=== PATIENT | female | born 1960 | race American Indian/Alaskan Native ===

== ENCOUNTER 2017-06-10 07:56 | Outpatient (CLI) | payer OTHER | END 2017-06-10 07:57 | disposition home or self-care (01) | LOC: PF 07:56 | PROVIDERS: ATTEND Internal Medicine | DX: Z02.71 Encounter for disability determination (principal); J45.909 Unspecified asthma, uncomplicated; J40 Bronchitis, not specified as acute or chronic; F41.9 Anxiety disorder, unspecified; K21.9 Gastro-esophageal reflux disease without esophagitis; G43.909 Migraine, unspecified, not intractable, without status migrainosus; M51.26 Other intervertebral disc displacement, lumbar region; S39.92XA Unspecified injury of lower back, initial encounter; M75.100 Unspecified rotator cuff tear or rupture of unspecified shoulder, not specified as traumatic; X58.XXXA Exposure to other specified factors, initial encounter; Y93.89 Activity, other specified; Y92.89 Other specified places as the place of occurrence of the external cause; Y99.8 Other external cause status | CPT/HCPCS: 94010 ==

== ENCOUNTER 2018-11-04 14:13 | Inpatient (IN) | payer OTHER ==
--- NOTE | 2018-11-04 16:47 | Emergency Department Report ---
HPI - General Chief Complaint: Dizziness Time Seen by Provider: 11/04/18 16:08 - HPI HPI: Room 26 The patient is a 58-year-old female presenting with a chief complaint of weakness and slurred speech. The patient states her symptoms began one week ago with intermittent weakness of both arms and legs. Patient states at times she has tremors in both hands. The patient exhibits a minute slurred speech for the past week. Patient states she feels dizzy and off balance whenever she stands for the past week. The patient states whenever she talks it feels as though her tongue is not doing what she is telling it to do. Location: [See above] Duration: [See above] Quality: [See above] Severity: [See above] Timing: [See above] Context: [See above] Modifying factors: [See above] Associated signs and symptoms: [see above] ED Past Medical Hx - Past Medical History Previous Medical History?: Yes Hx Asthma: Yes - Surgical History Past Surgical History?: Yes Additional Surgical History: 1986 - Family History Family history: no significant - Social History Smoking Status: Never Smoker Substance Use Type: None (denies illicit drug use) ED Review of Systems ROS: Stated complaint: WEAKNESS Other details as noted in HPI Constitutional: no symptoms reported Eyes: denies: eye pain ENT: denies: throat pain Respiratory: no symptoms reported Cardiovascular: denies: chest pain Endocrine: no symptoms reported Gastrointestinal: denies: abdominal pain Genitourinary: denies: dysuria Musculoskeletal: denies: back pain Neurological: weakness, other (dysarthria) Physical Exam - Physical Exam Vital Signs: Vital Signs 11/04/18 14:25 Temperature 98.5 F Pulse Rate 92 H Respiratory 18 Rate Blood Pressure 127/74 O2 Sat by Pulse 98 Oximetry Physical Exam: GENERAL: The patient is well-developed well-nourished female lying on stretcher not appearing to be in acute distress. [] HEENT: Normocephalic. Atraumatic. Extraocular motions are intact. Patient has moist mucous membranes. NECK: Supple. Trachea midline CHEST/LUNGS: Clear to auscultation. There is no respiratory distress noted. HEART/CARDIOVASCULAR: Regular. There is no tachycardia. There is no gallop rub or murmur. ABDOMEN: Abdomen is soft, nontender. Patient has normal bowel sounds. There is no abdominal distention. SKIN: There is no rash. There is no edema. There is no diaphoresis. NEURO: The patient is awake, alert, and oriented. The patient is cooperative. The patient has no focal neurologic deficits. The patient has normal speech. Cranial nerves II through XII grossly intact, no drift. Patient able to hold either leg at 30 angle for 5 seconds. MUSCULOSKELETAL: There is no evidence of acute injury. NIHSS= 0 ED Course Vital Signs 11/04/18 14:25 Temperature 98.5 F Pulse Rate 92 H Respiratory 18 Rate Blood Pressure 127/74 O2 Sat by Pulse 98 Oximetry ED Medical Decision Making - Lab Data Result diagrams: 11/04/18 17:33 11/04/18 17:33 Laboratory Tests 11/04/18 11/04/18 11/04/18 17:33 17:33 17:33 WBC 12.0 H RBC 5.92 H Hgb 12.7 Hct 41.1 MCV 69 L MCH 22 L MCHC 31 RDW 15.4 H Plt Count 278 Lymph % (Auto) 28.8 [place] % (Auto) 6.2 Eos % (Auto) 0.7 Baso % (Auto) 0.4 Lymph # 3.5 [place] # 0.7 Eos # 0.1 Baso # 0.0 Seg Neutrophils % 63.9 Seg Neutrophils # 7.7 PT 12.8 INR 0.99 APTT 27.5 Sodium 143 Potassium 3.8 Chloride 103.1 Carbon Dioxide 25 Anion Gap 19 BUN 16 Creatinine 0.8 Estimated GFR > 60 BUN/Creatinine Ratio 20 Glucose 62 L Calcium 9.1 Phosphorus 3.60 Magnesium 1.90 Total Bilirubin 0.30 AST 17 ALT 36 Alkaline Phosphatase 85 Total Creatine Kinase 73 CK-MB (CK-2) < 1.0 CK-MB (CK-2) Rel Index 1.3 Troponin T < 0.010 Total Protein 6.9 Albumin 3.9 Albumin/Globulin Ratio 1.3 - EKG Data -: EKG Interpreted by Mt EKG shows normal: sinus rhythm Rate: normal - EKG Data When compared to previous EKG there are: previous EKG unavailable Interpretation: nonspecific ST-T wave parth (T-wave inversion in lead 3) - Radiology Data Radiology results: report reviewed (CT head), image reviewed (CT head) [facility] [address] [place] [address] Cat Scan Report Signed Patient: ALEKSANDR RIVAS MR#: [id number] : 1960 Acct:[id number] Age/Sex: 58 / F ADM Date: 11/04/18 Loc: ED Attending Dr: Ordering Physician: DURAN MATA MD Date of Service: 11/04/18 Procedure(s): CT head/brain wo con Accession Number(s): [id number] cc: DURAN MATA MD CT head/brain wo con INDICATION: intermittent dizziness, slurred speech and weaknes. TECHNIQUE: All CT scans at this location are performed using CT dose reduction for ALARA by means of automated exposure control. COMPARISON: None available. FINDINGS: Visualized paranasal and mastoid sinuses are clear. Motion artifact obscures considerable detail on the more inferior images. Posterior fo ssa and temporal lobes are not adequately seen. Ventricles are symmetrical and normal in size. No appreciable mass, hemorrhage or other acute abnormality. IMPRESSION: 1. Suboptimal imaging of the posterior fossa, brainstem and temporal lobes. No significant abnormalities identified. Signer Name: Max Cordoba MD Signed: 11/04/2018 7:09 PM Workstation Name: [id number] Transcribed By: TM Dictated By: Max Cordoba MD Electronically Authenticated By: Max Cordoba MD Signed Date/Time: 11/04/181908 DD/ 05 TD/TT: - Differential Diagnosis TIAs, CVA, MS, electrolyte abnormality Critical care attestation.: If time is entered above; I have spent that time in minutes in the direct care of this critically ill patient, excluding procedure time. ED Disposition Clinical Impression: Transient neurological symptoms Disposition: OP ADMIT IP TO THIS HOSP Is pt being admited?: Yes Does the pt Need Aspirin: Yes Condition: Fair Referrals: PRIMARY CARE, [Primary Care Provider] - 3-5 Days Time of Disposition: 19:21 (Hospitalist paged (Dr Ramos))
[2018-11-04 17:48] LABS: Basophils % (Auto) 0.4 % (0.0-1.8); Eosinophils # (Auto) 0.1 K/mm3 (0.0-0.4); Eosinophils % (Auto) 0.7 % (0.0-4.3); Hematocrit 41.1 % (30.3-42.9); Hemoglobin 12.7 gm/dl (10.1-14.3); Lymphocytes # (Auto) 3.5 K/mm3 (1.2-5.4); Lymphocytes % (Auto) 28.8 % (13.4-35.0); Mean Corpuscular HGB Conc 31 % (30-34); Monocytes # (Auto) 0.7 K/mm3 (0.0-0.8); Monocytes % (Auto) 6.2 % (0.0-7.3); Platelet Count 278 K/mm3 (140-440); Red Blood Count 5.92 M/mm3 (3.65-5.03); Red Cell Distribution Width 15.4 % (13.2-15.2)
[2018-11-04 17:58] LABS: Mean Corpuscular Volume 69 fl (79-97)
[2018-11-04 17:59] LABS: INR 0.99 (0.87-1.13); Partial Thromboplastin Time 27.5 Sec. (24.2-36.6)
[2018-11-04 18:11] LABS: Alanine Aminotransferase 36 units/L (7-56); Albumin 3.9 g/dL (3.9-5); BUN/Creatinine Ratio 20; Blood Urea Nitrogen 16 mg/dL (7-17); Calcium 9.1 mg/dL (8.4-10.2); Hemolysis Index 3
[2018-11-04 18:41] LABS: Creatine Kinase MB < 1.0 ng/mL (0.0-4.0)
--- NOTE | 2018-11-04 19:13 | Cat Scan Report ---
CT head/brain wo con INDICATION: intermittent dizziness, slurred speech and weaknes. TECHNIQUE: All CT scans at this location are performed using CT dose reduction for ALARA by means of automated e xposure control. COMPARISON: None available. FINDINGS: Visualized paranasal and mastoid sinuses are clear. Motion artifact obscures considerable detail on the more inferior images. Posterior fossa and tempora l lobes are not adequately seen. Ventricles are symmetrical and normal in size. No appreciable mass, hemorrhage or other acute abnorma lity. IMPRESSION: 1. Suboptimal imaging of the posterior fossa, brainstem and temporal lobes. No significant abnormalit ies identified. Signer Name: Max Cordoba MD Signed: 11/04/2018 7:09 PM Workstation Name: [id number]
[2018-11-04] MEDS ORDERED: ASPIRIN PO ONE (19:21)
--- NOTE | 2018-11-04 21:47 | History and Physical Report ---
History of Present Illness Date of examination: 11/04/18 History of present illness: 58-year-old man with a history of asthma comes emergency room complaining of dizziness all week and her balance being off. She also stated that she had slurred speech intermittently during the week and jerking of her hands eview Of Systems: Constitutional: no weight loss, fever, chills Ears, eyes, nose, mouth and throat: no nasal congestion, no nasal discharge, no sinus pressure, blurry vision, diplopia Neck: No neck pain or rigidity. Cardiovascular: No palpitations, chest pain Respiratory: No shortness of breath, cough Gastrointestinal: No hematochezia, abdominal pain Genitourinary : no dysuria, frequency , hematuria Musculoskeletal: no muscle ache , joint pain Integumentary: no rash, no pruritis Neurological: no parathesias, focal weakness Endocrine: no cold or heat intolerance, no polyuria or polydipsia Hematologic/Lymphatic: no easy bruising, no easy bleeding, no gland swelling Allergic/Immunologic: no urticaria, no angioedema. PAST MEDICAL HISTORY: asthma PAST SURGICAL HISTORY: Section, rotator cuff FAMILY HISTORY:hypertension, diabetes SOCIAL HISTORY: Denies tobacco, drugs, alcohol Medications and Allergies Allergies Allergy/AdvReac Type Severity Reaction Status Date / Time egg Allergy Nausea Unverified 04/08/17 07:12 prednisone Allergy Itching Verified 04/03/13 00:24 Home Medications Medication Instructions Recorded Confirmed Last Taken Type Cetirizine HCl [Zyrtec 10mg tab] 10 mg PO QDAY 11/04/18 11/04/18 Unknown History Dextroamphetamine/Amphetamine 5 mg PO QDAY 11/04/18 11/04/18 Unknown History [Adderall 10 mg Tablet] FLUoxetine HCL [PROzac] 40 mg PO QDAY 11/04/18 11/04/18 Unknown History Gabapentin [Neurontin] 300 mg PO BID 11/04/18 11/04/18 Unknown History Meclizine [Antivert] 25 mg PO TID PRN 11/04/18 11/04/18 Unknown History Pantoprazole [Protonix] 40 mg PO BID 11/04/18 11/04/18 Unknown History buPROPion [Wellbutrin] 75 mg PO QAM 11/04/18 11/04/18 Unknown History diphenhydrAMINE [Benadryl CAP] 25 mg PO QHS PRN 11/04/18 11/04/18 Unknown History traZODone [Desyrel] 50 mg PO QHS 11/04/18 11/04/18 Unknown History Exam - Physical Exam Narrative exam: General Apperance: The patient sitting in bed no acute distress HEENT: Normocephalic, atraumatic. Pupils equally round and reactive to light, extraocular movement intact, and no sclericterus or JVD or thyromegaly or nodule. Neck supple, no carotid bruit, mucous membranes moist, no exudate or erythema Heart: S1-S2, regular is rhythm Lungs: Clear to auscultation bilaterally, breathing comfortable Abdomen: Positive bowel sounds, soft, nontender, nondistended, no organomegaly Extremities: No edema cyanosis clubbing Skin: no rash, nodule, warm and dry Neuro:CN 2 -12 intact, motor/sensory intact, speech is fluent - Constitutional Vitals: Temp Pulse Resp BP Pulse Ox 98.5 F 84 18 104/49 99 11/04/18 14:25 11/04/18 21:25 11/04/18 21:25 11/04/18 21:25 11/04/18 21:25 Results - Labs CBC & Chem 7: 11/04/18 17:33 11/04/18 17:33 Labs: Abnormal lab results 11/04/18 11/04/18 Range/Units 17:33 17:33 WBC 12.0 H (4.5-11.0) K/mm3 RBC 5.92 H (3.65-5.03) M/mm3 MCV 69 L (79-97) fl MCH 22 L (28-32) pg RDW 15.4 H (13.2-15.2) % Glucose 62 L (65-100) mg/dL - Imaging and Cardiology CT Scan - head: report reviewed Assessment and Plan Assessment Her blood TIA Asthma Plan Plan Admit to medicine Obtain MRI of the head, and neck, echo Start aspirin, statin, fluid IV hydralazine as needed for blood pressure control [facility] [employer] Super[employer] neurology, physical and occupational therapy DVT prophylaxis
[2018-11-04] MEDS ORDERED: TYLENOL PO ONE (22:51)
[2018-11-04] MEDS ORDERED: ASPIRIN ONE (22:56)
[2018-11-04] MEDS ORDERED: TYLENOL ONE (22:56)
[2018-11-04] MEDS ORDERED: SODIUM CHLORIDE FLUSH SYRINGE 10 ML IV PRN (23:17)
[2018-11-04] MEDS ORDERED: DULCOLAX PR PRN (23:17)
[2018-11-04] MEDS ORDERED: ZOFRAN IV PRN (23:17)
[2018-11-04] MEDS ORDERED: MILK OF MAGNESIA PO PRN (23:17)
[2018-11-05] MEDS: NACL 0.9% 1000 ML 1,000 ML IV SCH ×2 (01:29→16:12)
[2018-11-05 07:30] LABS: Chol/HDL Ratio 2.75 %
[2018-11-05] MEDS ORDERED: LOVENOX SUB-Q SCH (10:00)
--- NOTE | 2018-11-05 11:42 | Magnetic Resonance Report ---
MRI BRAIN WITHOUT CONTRAST, MRA HEAD WITHOUT CONTRAST INDICATION / CLINICAL INFORMATION: stroke. Symptoms include slurred speech and arm and leg shaking. TECHNIQUE: Multiplanar, multi sequential MRI images of the brain. Routine MRA of the head is performed. 3-D/MIP reformats postprocessed. COMPARISON: Head CT on 11/04/2018. FINDINGS: MR BRAIN: BRAIN / INTRACRANIAL CONTENTS: No acute ischemia, acute hemorrhage, mass effect, midline shift, or hy drocephalus. No chronic infarct or significant atrophy. No significant demyelinating changes. CRANIOCERVICAL JUNCTION: No significant abnormality. VASCULAR FLOW-VOIDS: No significant abnormality. ORBITS: No significant abnormality of visualized orbits. SINUSES / MASTOIDS: No significant abnormality of visualized sinuses and mastoid air cells. ADDITIONAL FINDINGS: None. MRA HEAD: Intracranial vertebral arteries: No significant stenosis. Left vertebral artery is dominant. Basilar artery: No significant abnormality. Posterior cerebral arteries: There is origin of the right posterior cerebral artery. Intracranial internal carotid arteries: No significant abnormality. Anterior cerebral arteries: No significant abnormality. Middle cerebral arteries: No significant abnormality. Additional findings: None. IMPRESSION: 1. No acute infarct or other acute intracranial abnormality. The brain appears essentially normal for age. 2. No significant stenosis or large vessel occlusion of the intracranial arteries. Signer Name: Silverio Stephen MD Signed: 11/05/2018 11:38 AM Workstation Name: [id number]
[2018-11-05] MEDS ORDERED: PNEUMOVAX 23 IM ONE (12:00)
[2018-11-05] MEDS: LOVENOX SUB-Q SCH (12:56)
[2018-11-05] MEDS: ASPIRIN PO SCH (12:56)
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
[2018-11-05] MEDS: TYLENOL PO PRN ×2 (16:16→21:59)
[2018-11-05] MEDS ORDERED: ANTIVERT PO PRN (17:24)
--- NOTE | 2018-11-05 17:24 | Progress Note ---
Assessment and Plan Assessment and plan: Orthostasis. Presyncope/Dizziness secondarily. Cont. IVF hydration Dehydration/volume depletion. As above Tremor. Etiology sec to Benign essential tremor vs increase in wellbutrin. Disposition. D/C in am History Interval history: no new issues overnight Hospitalist Physical - Constitutional Vitals: Temp Pulse Resp BP Pulse Ox 97.2 F L 90 18 146/94 99 11/05/18 04:31 11/05/18 11:46 11/05/18 04:31 11/05/18 11:46 11/05/18 04:31 General appearance: Present: no acute distress, well-nourished - EENT Eyes: Present: PERRL, EOM intact ENT: hearing intact, clear oral mucosa, dentition normal - Neck Neck: Present: supple, normal ROM - Respiratory Respiratory effort: normal Respiratory: bilateral: CTA - Cardiovascular Rhythm: regular Heart Sounds: Present: S1 & S2. Absent: gallop, rub - Extremities Extremities: no ischemia, No edema, Full ROM - Abdominal General gastrointestinal: soft, non-tender, non-distended, normal bowel sounds - Integumentary Integumentary: Present: clear, warm, dry - Neurologic Neurologic: CNII-XII intact, moves all extremities Results - Labs CBC & Chem 7: 11/04/18 17:33 11/04/18 17:33 Labs: Laboratory Last Values WBC 12.0 K/mm3 (4.5-11.0) H 11/04/18 17:33 RBC 5.92 M/mm3 (3.65-5.03) H 11/04/18 17:33 Hgb 12.7 gm/dl (10.1-14.3) 11/04/18 17:33 Hct 41.1 % (30.3-42.9) 11/04/18 17:33 MCV 69 fl (79-97) L 11/04/18 17:33 MCH 22 pg (28-32) L 11/04/18 17:33 MCHC 31 % (30-34) 11/04/18 17:33 RDW 15.4 % (13.2-15.2) H 11/04/18 17:33 Plt Count 278 K/mm3 (140-440) 11/04/18 17:33 Lymph % (Auto) 28.8 % (13.4-35.0) 11/04/18 17:33 Gem % (Auto) 6.2 % (0.0-7.3) 11/04/18 17:33 Eos % (Auto) 0.7 % (0.0-4.3) 11/04/18 17:33 Baso % (Auto) 0.4 % (0.0-1.8) 11/04/18 17:33 Lymph # 3.5 K/mm3 (1.2-5.4) 11/04/18 17:33 Gem # 0.7 K/mm3 (0.0-0.8) 11/04/18 17:33 Eos # 0.1 K/mm3 (0.0-0.4) 11/04/18 17:33 Baso # 0.0 K/mm3 (0.0-0.1) 11/04/18 17:33 Seg Neutrophils % 63.9 % (40.0-70.0) 11/04/18 17:33 Seg Neutrophils # 7.7 K/mm3 (1.8-7.7) 11/04/18 17:33 PT 12.8 Sec. (12.2-14.9) 11/04/18 17:33 INR 0.99 (0.87-1.13) 11/04/18 17:33 APTT 27.5 Sec. (24.2-36.6) 11/04/18 17:33 Sodium 143 mmol/L (137-145) 11/04/18 17:33 Potassium 3.8 mmol/L (3.6-5.0) 11/04/18 17:33 Chloride 103.1 mmol/L (98-107) 11/04/18 17:33 Carbon Dioxide 25 mmol/L (22-30) 11/04/18 17:33 19 mmol/L 11/04/18 17:33 BUN 16 mg/dL (7-17) 11/04/18 17:33 0.8 mg/dL (0.7-1.2) 11/04/18 17:33 Estimated GFR > 60 ml/min 11/04/18 17:33 20 % 11/04/18 17:33 Glucose 62 mg/dL (65-100) L 11/04/18 17:33 Calcium 9.1 mg/dL (8.4-10.2) 11/04/18 17:33 Phosphorus 3.60 mg/dL (2.5-4.5) 11/04/18 17:33 Magnesium 1.90 mg/dL (1.7-2.3) 11/04/18 17:33 0.30 mg/dL (0.1-1.2) 11/04/18 17:33 AST 17 units/L (5-40) 11/04/18 17:33 ALT 36 units/L (7-56) 11/04/18 17:33 85 units/L (35-129) 11/04/18 17:33 73 units/L (30-135) 11/04/18 17:33 CK-MB (CK-2) < 1.0 ng/mL (0.0-4.0) 11/04/18 17:33 CK-MB (CK-2) Rel Index 1.3 (0-4) 11/04/18 17:33 < 0.010 ng/mL (0.00-0.029) 11/04/18 17:33 6.9 g/dL (6.3-8.2) 11/04/18 17:33 3.9 g/dL (3.9-5) 11/04/18 17:33 1.3 % 11/04/18 17:33 Triglycerides 70 mg/dL (2-149) 11/05/18 05:53 Cholesterol 146 mg/dL (50-199) 11/05/18 05:53 93 mg/dL (50-130) 11/05/18 05:53 53 mg/dL (40-59) 11/05/18 05:53 2.75 % 11/05/18 05:53 Active Medications - Current Medications Current Medications: Generic Name Dose Route Start Last Admin Trade Name Freq PRN Reason Stop Dose Admin Acetaminophen 650 mg 11/04/18 23:17 11/05/18 16:16 Tylenol PO 650 mg Q4H PRN Administration Pain, Mild (1-3) Aspirin 325 mg 11/05/18 10:00 11/05/18 12:56 Aspirin PO 325 mg QDAY [facility] Administration Bisacodyl 10 mg 11/04/18 23:17 Dulcolax [place] QDAY PRN Constipation Enoxaparin Sodium 40 mg 11/05/18 10:00 11/05/18 12:56 Lovenox SUB-Q 40 mg QDAY@1000 [facility] Administration Sodium Chloride 1,000 mls @ 100 mls/hr 11/04/18 23:45 11/05/18 16:12 Nacl 0.9% 1000 Ml IV 100 mls/hr DIRECT [facility] Administration Magnesium Hydroxide 30 ml 11/04/18 23:17 Milk Of Magnesia PO Q4H PRN Constipation Ondansetron HCl 4 mg 11/04/18 23:17 Zofran IV Q8H PRN Nausea And Vomiting Pravastatin Sodium 20 mg 11/05/18 22:00 Pravachol PO QHS [facility] Sodium Chloride 10 ml 11/04/18 23:17 Sodium Chloride Flush Syringe 10 Ml IV PRN PRN LINE FLUSH
[2018-11-05] MEDS ORDERED: BENADRYL PO PRN (17:39)
[2018-11-05] MEDS: NEURONTIN PO SCH (21:58)
[2018-11-05] MEDS: PROTONIX PO SCH (21:58)
[2018-11-05] MEDS ORDERED: PRAVACHOL PO SCH (22:00)
[2018-11-05] MEDS ORDERED: DESYREL PO SCH (22:00)
[2018-11-06 04:54] VITALS: BP 112/45
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
[2018-11-06] MEDS: PROTONIX PO SCH (09:50)
[2018-11-06] MEDS: ASPIRIN PO SCH (09:50)
[2018-11-06] MEDS: NEURONTIN PO SCH (09:50)
[2018-11-06] MEDS: LOVENOX SUB-Q SCH (09:51)
[2018-11-06] MEDS ORDERED: CLARITIN PO SCH (10:00)
[2018-11-06] MEDS ORDERED: NON-FORMULARY (Fluoxetine Hcl [Prozac] 40 MG) PO SCH (10:00)
[2018-11-06] MEDS ORDERED: WELLBUTRIN PO SCH (10:00)
[2018-11-06] MEDS ORDERED: PROzac PO SCH (10:00)
[2018-11-06] MEDS ORDERED: NON-FORMULARY (Cetirizine Hcl [Zyrtec 10mg Tab] 10 MG) PO SCH (10:00)
== END 2018-11-06 16:35 | disposition home or self-care (01) | DRG 93 ==
LOC: ED 14:13 → 4A 21:46
PROVIDERS: ADMIT Internal Medicine; ATTEND Hospitalist
PROC: 3E0234Z Introduction of Serum, Toxoid and Vaccine into Muscle, Percutaneous Approach (ICD-10-PCS; principal; 2018-11-05)
DX: G25.0 Essential tremor (principal); R29.818 Other symptoms and signs involving the nervous system; F32.9 Major depressive disorder, single episode, unspecified; R47.1 Dysarthria and anarthria; J45.909 Unspecified asthma, uncomplicated; E86.0 Dehydration; E86.9 Volume depletion, unspecified; E16.2 Hypoglycemia, unspecified; R47.81 Slurred speech; M54.17 Radiculopathy, lumbosacral region; Z88.1 Allergy status to other antibiotic agents; Z91.012 Allergy to eggs; Z79.899 Other long term (current) drug therapy; Z82.49 Family history of ischemic heart disease and other diseases of the circulatory system; Z83.3 Family history of diabetes mellitus; Z23 Encounter for immunization
CPT/HCPCS: 36415; 70450; 70544; 70551; 80053; 80061; 82550; 82553; 83735; 84100; 84484; 85025; 85610; 85730; 90732; 93005; 93010; 93306; G0378; A9270-GY; J1650; J7030

== ENCOUNTER 2019-02-21 13:06 | Emergency (ER) | payer OTHER ==
[2019-02-21 13:12] VITALS: BP 120/63
--- NOTE | 2019-02-21 14:07 | XRay Report ---
CHEST 2 VIEWS INDICATION: MAIN: persistant cough; C/O Asthma bronchitis for a month. Saw PCP and was prescribed meds. No relief with meds. COMPARISON: None. FINDINGS: Support devices: None. Heart: Within normal limits. Lungs/Pleura: No acute air space or interstitial disease. No significant pleural effusion. IMPRESSION: No acute findings. Signer Name: Jamie Medel MD Signed: 02/21/2019 2:03 PM Workstation Name: [id number]
[2019-02-21] MEDS ORDERED: BENZONATATE 100 MG CAP PO ONE (15:06)
--- NOTE | 2019-02-21 16:26 | Emergency Department Report ---
Upper Respiratory HPI - HPI Chief Complaint: Adult Asthma Stated Complaint: ASTHMA/BRONCHITIS Time Seen by Provider: 02/21/19 14:12 URI Symptoms: Rhinorrhea: No, Sore Throat: No, Ear Pain: No, Cough: Yes, Shortness of Breath: No, Sick Contacts: No, Unable to Take Fluids: No, Urine Output Abnormal: No, Listless Behavior: No Other History: This is a 58-year-old female nontoxic, well nourished in appearance, no acute signs of distress presents to the ED with c/o of dry nonproducitve cough x1 month. Patient denies any sick contact. She stated she did see her primary care doctor and was given albuterol by mouth medication with no significant changes. Patient denies any recent travels, long car, recent hospital stays. Patient denies any calf pain or calf tenderness. Patient denies any chest pain, short of breath, fever, chills, nausea, vomiting, hemoptysis, numbness, tingling, headache or stiff neck. Patient stated allergies to prednisone with no significant past medical history besides asthma. - Home Meds and Allergies Home Medications: Home Medications Medication Instructions Recorded Confirmed Last Taken Dextroamphetamine/Amphetamine 5 mg PO QDAY 11/04/18 11/04/18 Unknown [Adderall 10 mg Tablet] buPROPion [Wellbutrin] 75 mg PO QAM 11/04/18 11/04/18 Unknown Previous Rx's Medication Instructions Recorded Last Taken Type Cetirizine HCl [Zyrtec 10mg tab] 10 mg PO QDAY #30 tablet 11/06/18 Unknown Rx FLUoxetine HCL [PROzac] 40 mg PO QDAY #30 capsule 11/06/18 Unknown Rx FLUoxetine [PROzac] 40 mg PO QDAY capsule 11/06/18 Unknown Rx Gabapentin 300 mg PO BID #60 capsule 11/06/18 Unknown Rx Loratadine (Nf) [Claritin (Nf)] 10 mg PO DAILY tablet 11/06/18 Unknown Rx Meclizine [Antivert] 25 mg PO TID PRN #90 tablet 11/06/18 Unknown Rx Pantoprazole [Protonix TAB] 40 mg PO BID #60 tablet 11/06/18 Unknown Rx diphenhydrAMINE [Benadryl CAP] 25 mg PO QHS PRN #30 capsule 11/06/18 Unknown Rx traZODone [Desyrel] 50 mg PO QHS #30 tablet 11/06/18 Unknown Rx ALBUTEROL NEB's [Proventil 0.083% 2.5 mg IH TID PRN #1 box 02/21/19 Unknown Rx NEBS] Benzonatate [Tessalon Perles] 100 mg PO Q8HR PRN #20 capsule 02/21/19 Unknown Rx Allergies/Adverse Reactions: Allergies Allergy/AdvReac Type Severity Reaction Status Date / Time egg Allergy Nausea Unverified 04/08/17 07:12 prednisone Allergy Itching Verified 04/03/13 00:24 ED Review of Systems ROS: Stated complaint: ASTHMA/BRONCHITIS Other details as noted in HPI Constitutional: denies: chills, fever Eyes: denies: eye pain, eye discharge, vision change ENT: denies: ear pain, throat pain Respiratory: cough. denies: shortness of breath, wheezing Cardiovascular: denies: chest pain, palpitations Endocrine: no symptoms reported Gastrointestinal: denies: abdominal pain, nausea, diarrhea Genitourinary: denies: urgency, dysuria, discharge Musculoskeletal: denies: back pain, joint swelling, arthralgia Skin: denies: rash, lesions Neurological: denies: headache, weakness, paresthesias Psychiatric: denies: anxiety, depression Hematological/Lymphatic: denies: easy bleeding, easy bruising ED Past Medical Hx - Past Medical History Previous Medical History?: Yes Hx Congestive Heart Failure: No Hx Diabetes: No Hx Asthma: Yes Hx COPD: No Additional medical history: Bronchitis - Surgical History Past Surgical History?: Yes Additional Surgical History: 1986, Tubaligation - Social History Smoking Status: Never Smoker Substance Use Type: Alcohol, Prescribed - Medications Home Medications: Home Medications Medication Instructions Recorded Confirmed Last Taken Type Dextroamphetamine/Amphetamine 5 mg PO QDAY 11/04/18 11/04/18 Unknown History [Adderall 10 mg Tablet] buPROPion [Wellbutrin] 75 mg PO QAM 11/04/18 11/04/18 Unknown History Cetirizine HCl [Zyrtec 10mg tab] 10 mg PO QDAY #30 tablet 11/06/18 Unknown Rx FLUoxetine HCL [PROzac] 40 mg PO QDAY #30 capsule 11/06/18 Unknown Rx FLUoxetine [PROzac] 40 mg PO QDAY capsule 11/06/18 Unknown Rx Gabapentin 300 mg PO BID #60 capsule 11/06/18 Unknown Rx Loratadine (Nf) [Claritin (Nf)] 10 mg PO DAILY tablet 11/06/18 Unknown Rx Meclizine [Antivert] 25 mg PO TID PRN #90 tablet 11/06/18 Unknown Rx Pantoprazole [Protonix TAB] 40 mg PO BID #60 tablet 11/06/18 Unknown Rx diphenhydrAMINE [Benadryl CAP] 25 mg PO QHS PRN #30 capsule 11/06/18 Unknown Rx traZODone [Desyrel] 50 mg PO QHS #30 tablet 11/06/18 Unknown Rx ALBUTEROL NEB's [Proventil 0.083% 2.5 mg IH TID PRN #1 box 02/21/19 Unknown Rx NEBS] Benzonatate [Tessalon Perles] 100 mg PO Q8HR PRN #20 capsule 02/21/19 Unknown Rx ED Bronchiolitis Physical Exam - Exam General: Vital signs noted. No distress. Alert and acting appropriately. Neurologic: Alert and oriented, no deficits. Musculoskeletal: Unremarkable. ED Bronchiolitis Tests - Testing Testing: CXR: Normal/Negative ED Physical Exam - General Limitations: No Limitations General appearance: alert, in no apparent distress - Head Head exam: Present: atraumatic, normocephalic - Neck Neck exam: Present: normal inspection, full ROM. Absent: tenderness, meningismus, lymphadenopathy - Respiratory Respiratory exam: Present: normal lung sounds bilaterally. Absent: respiratory distress, wheezes, rales, rhonchi, stridor, chest wall tenderness, accessory muscle use, decreased breath sounds, prolonged expiratory - Cardiovascular Cardiovascular Exam: Present: regular rate, normal rhythm, normal heart sounds. Absent: irregular rhythm, systolic murmur, diastolic murmur, rubs, gallop - Extremities Exam Extremities exam: Present: normal inspection, full ROM - Back Exam Back exam: Present: normal inspection, full ROM - Neurological Exam Neurological exam: Present: alert, oriented X3, normal gait - Psychiatric Psychiatric exam: Present: normal affect, normal mood - Skin Skin exam: Present: warm, dry, intact, normal color. Absent: rash ED Course Vital Signs 02/21/19 13:10 Temperature 98.7 F Pulse Rate 99 H Respiratory 20 Rate Blood Pressure 120/63 O2 Sat by Pulse 98 Oximetry - Reevaluation(s) Reevaluation #1: 02/21/19 16:28 Patient is speaking in full sentences with no signs of distress noted. ED Medical Decision Making - Medical Decision Making This is a 58-year-old female that presents with bronchitis. Patient is stable and was examined by me. Chest x-ray has been obtained and dictated by radiologist with normal exam. Patient is notified of x-ray results with no questions noted. Patient was instructed to increase hydration, rest and take Motrin for fever episodes. Patient received Tesslone perrls in the ED. Vitals stable. Patient is nonfebrile and normal heart rate. Patient was instructed Follow-up with a primary care doctor in 3-5 days or if symptoms worsen and continue return to emergency room as soon as possible. At time time of discharge, the patient does not seem toxic or ill in appearance. No acute signs of distress noted. Patient agrees to discharge treatment plan of care. No further questions noted by the patient. At discharge patient requested for a nebulizer albuterol refill. Critical care attestation.: If time is entered above; I have spent that time in minutes in the direct care of this critically ill patient, excluding procedure time. ED Disposition Clinical Impression: Bronchitis Disposition: DC-01 TO HOME OR SELFCARE Is pt being admited?: No Does the pt Need Aspirin: No Condition: Stable Instructions: Chronic Bronchitis (ED) Additional Instructions: Follow-up with a primary care doctor in 3-5 days or if symptoms worsen and continue return to emergency room as soon as possible. Prescriptions: ALBUTEROL NEB's [Proventil 0.083% NEBS] 2.5 mg IH TID PRN #1 box PRN Reason: Wheezing Benzonatate [Tessalon Perles] 100 mg PO Q8HR PRN #20 capsule PRN Reason: Cough Referrals: JUAN BLAKE MD [Primary Care Provider] - 3-5 Days PRIMARY CAREMD [Referring] - 3-5 Days LEXII RÍOS MD [Staff Physician] - 3-5 Days [facility] [Outside] - 3-5 Days Forms: Work/School Release Form(ED)
== END 2019-02-21 16:59 | disposition home or self-care (01) ==
LOC: ED 13:06
DX: J40 Bronchitis, not specified as acute or chronic (principal); Z98.51 Tubal ligation status; Z79.899 Other long term (current) drug therapy; Z91.012 Allergy to eggs; Z88.6 Allergy status to analgesic agent
CPT/HCPCS: 71046

== ENCOUNTER 2020-11-29 08:55 | Day surgery (SDC) | payer OTHER ==
[2020-11-28 11:14] LABS: Blood Urea Nitrogen 18 mg/dL (7-17); Hemolysis Index 2
[2020-11-28 11:30] LABS: Hemoglobin 12.3 gm/dl (10.1-14.3); Mean Corpuscular HGB Conc 32 % (30-34); Mean Corpuscular Volume 72 fl (79-97); Platelet Count 239 K/mm3 (140-440); Red Blood Count 5.42 M/mm3 (3.65-5.03); Red Cell Distribution Width 16.5 % (13.2-15.2)
[2020-11-28 11:52] LABS: BUN/Creatinine Ratio 26
--- NOTE | 2020-11-28 14:31 | Anesthesia Consultation ---
Anesthesia Consult and Med Hx Date of service: 11/28/20 - Airway Anesthetic Teeth Evaluation: Good, Caps ROM Head & Neck: Adequate Mental/Hyoid Distance: Adequate Mallampati Class: Class III Intubation Access Assessment: Possibly Difficult - Pulmonary Exam CTA: Yes (no wheezing, good air entry, normal WOB, SpO2 97% RA) - Cardiac Exam Cardiac Exam: RRR - Pre-Operative Health Status ASA Pre-Surgery Classification: ASA3 Proposed Anesthetic Plan: MAC - Pre-Anesthesia Comment Pre-Anesthesia Comments: GA vs MAC pending discussion with surgeon - Pulmonary Hx Smoking: No Hx Asthma: Yes (daily symptoms/inhaler use) Hx Respiratory Symptoms: Yes (chronic cough) Home Oxygen Therapy: No Hx Sleep Apnea: Yes (+/- CPAP) - Cardiovascular System Hx Hypertension: No Hx Heart Attack/AMI: No - Central Nervous System 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 She was recently seen by her help desk team leader and was started on steroids. Reports symptoms are at baseline or slightly improved. Most recent pulmonology visit note reviewed. Discussed risk of periop pulmonary complications. Discussed risks/benefits of GA and MAC with patient. Verbalized understanding.
--- NOTE | 2020-11-29 07:22 | Short Stay Summary ---
Short Stay Documentation Date of service: 11/29/20 Narrative H&P: 60-year-old -0-1-1 with a history of postmenopausal bleeding. The patient has an ultrasound that demonstrated a thickened endometrial stripe of 9.25 mm. She has also findings of a 1.7 cm centimeter leiomyoma. And endometrial biopsy was attempted in the office however secondary to a stenotic cervical os the procedure could not be performed. - History Principal diagnosis: Postmenopausal bleeding Past Medical History: diabetes, hyperlipidemia Past Surgical History: , Other (Tubal ligation) Social history: - Allergies and Medications Current Medications: Allergies No Known Allergies Allergy (Verified 09/05/20 17:02) Home Medications Medication Instructions Recorded Confirmed Last Taken Type buPROPion [Wellbutrin] 300 mg PO QAM 11/04/18 11/28/20 Unknown History Loratadine (Nf) [Claritin (Nf)] 10 mg PO DAILY tablet 11/06/18 11/28/20 Unknown Rx diphenhydrAMINE [Benadryl CAP] 25 mg PO QHS PRN #30 capsule 11/06/18 11/28/20 Unknown Rx ALBUTEROL NEB's [Proventil 0.083% 2.5 mg IH TID PRN #1 box 02/21/19 11/28/20 Unknown Rx NEBS] Ascorbic Acid [Vitamin C] 1,000 mg PO DAILY 09/05/20 11/28/20 Unknown History Benzonatate [Tessalon Perles] 100 mg PO DAILY 09/05/20 11/28/20 Unknown History FLUoxetine [PROzac] 20 mg PO QDAY 09/05/20 11/28/20 Unknown History Fluticasone Propion/Salmeterol 1 each IH PRN PRN 09/05/20 11/28/20 Unknown History [Wixela 250-50 Inhub] Gabapentin 600 mg PO BID 09/05/20 11/28/20 Unknown History Montelukast [Singulair] 10 mg PO QPM 09/05/20 11/28/20 Unknown History Rizatriptan Benzoate [Maxalt] 10 mg PO PRN PRN 09/05/20 11/28/20 Unknown History Simvastatin 40 mg PO DAILY 09/05/20 11/28/20 Unknown History Tiotropium [place] [Spiriva 2 puff IH DAILY 09/05/20 11/28/20 Unknown History Respimat] Topiramate [Topamax] 50 mg PO DAILY 09/05/20 11/28/20 Unknown History Zinc [Zinc 50mg TAB] 50 mg PO DAILY 09/05/20 11/28/20 Unknown History estradioL [Estradiol] 0.5 mg PO DAILY 09/05/20 11/28/20 Unknown History metFORMIN [Glucophage] 500 mg PO QHS 09/05/20 11/28/20 Unknown History traMADoL [Ultram] 100 mg PO BID 09/05/20 11/28/20 Unknown History traZODone [Desyrel] 150 mg PO QHS 09/05/20 11/28/20 Unknown History Azithromycin [Zithromax Tri-[place]] 500 mg PO DAILY 11/28/20 11/28/20 Unknown History Pantoprazole Sodium [Protonix] 40 mg PO DAILY 11/28/20 11/28/20 Unknown History Prednisone [predniSONE 10 mg 10 mg PO .TAPER 11/28/20 11/28/20 Unknown History (6-Day Pack, 21 Tabs)] Active Medications Acetaminophen (Acetaminophen 500 Mg Tab) 1,000 mg PO PREOP CASSY Lactated Ringer's (Lactated Ringers) 1,000 mls @ 100 mls/hr IV DIRECT CASSY Stop: 11/29/20 23:59 Midazolam HCl (Midazolam 2 Mg/2 Ml Inj) 2 mg IV PREOP CASSY - Physical exam General appearance: no acute distress Integumentary: no rash HEENT: Atraumatic Lungs: Clear to auscultation Breasts: deferred Heart: Regular rate Gastrointestinal: normal Female Genitourinary: deferred Rectal Exam: deferred - Brief post op/procedure progress note Date of procedure: 11/29/20 Pre-op diagnosis: Postmenopausal bleeding Post-op diagnosis: same Procedure: Hysteroscopy Dilatation and curettage Anesthesia: MAC Surgeon: SHAQ GROVES Estimated blood loss: minimal Pathology: list (Endometrial curettings) Specimen disposition: to lab Condition: stable - Hospital course Hospital course: The patient was admitted the day of surgery underwent a dilatation and curettage please see operative note for details of surgery. Postoperative course was uneventful. - Disposition Condition at discharge: Good Disposition: 01 HOME / SELF CARE / HOMELESS Short Stay Discharge Plan Activity: other (Pelvic rest for 1 week) Diet: regular Additional Instructions: Pelvic rest for 1 week Schedule follow-up with Dr. Groves in 2 to 4 weeks Prescriptions: Ibuprofen [Motrin] 800 mg PO Q8HR PRN #30 tablet PRN Reason: Pain , Severe (7-10) HYDROcodone/APAP 5-325 [Ideal 5/325] 1 each PO Q6HR PRN #15 tablet PRN Reason: Pain
[~2020-11-29 08:55] MED LIST: ACETAMINOPHEN 500 MG TAB PO SCH; LACTATED RINGERS 1,000 ML IV SCH; MIDAZOLAM 2 MG/2 ML INJ IV SCH
[2020-11-29] MEDS ORDERED: ONDANSETRON 4 MG/2 ML INJ IV PRN (09:40)
[2020-11-29] MEDS ORDERED: HYDROmorphone 1 MG/1 ML INJ IV PRN (09:40)
--- NOTE | 2020-11-29 09:40 | Anesthesia Day of Surgery ---
Anesthesia Day of Surgery - Day of Surgery Patient Examined: Yes Patient H&P Reviewed: Yes Patient is NPO: Yes
[2020-11-29] MEDS ORDERED: ALBUTEROL 2.5 MG/3 ML NEBU IH SCH (10:00)
[2020-11-29] MEDS ORDERED: HYDROcodone/ACETAMINOPHEN 5-325 MG TAB PO PRN (10:00)
[2020-11-29] MEDS ORDERED: propofoL 200 MG/20 ML VIAL IV ONE ×2 (10:20→10:21)
[2020-11-29] MEDS ORDERED: KETAMINE/STERILE WATER 50 MG/ML SYRINGE ONE (10:21)
[2020-11-29] MEDS ORDERED: SODIUM CHLORIDE P/F VIAL 10 ML 10 ML ONE (10:21)
[2020-11-29] MEDS ORDERED: LIDOCAINE MPF (2%) 20 MG/1 ML VIAL 5 ML ONE (10:23)
[2020-11-29] MEDS ORDERED: ALBUTEROL 8.5 GM MDI INHALATION IH ONE (10:30)
[2020-11-29] MEDS ORDERED: SODIUM CHLORIDE 0.9% IRRIG SOLN 2000 ML IR ONE (11:00)
--- NOTE | 2020-11-29 11:14 | Operative Report ---
Operative Report Operative Report: Date of procedure: November 29, 2020 Pre-operative diagnosis: Postmenopausal bleeding; stenotic cervical os Post-operative diagnosis: Same as above Procedure name(s): Hysteroscopy; dilatation and curettage Surgeon: Lily Lyons M.D. Rod Drawer: None Anesthesia: MAC Findings no intracavitary lesions; Pathology: Endometrial curettings Indication: 60-year-old -0-1-1 with a history of postmenopausal bleeding. Endometrial biopsy was attempted in the office however was unsuccessful secondary to a stenotic cervical os. Procedure The patient was taken to the operating room and given general tracheal anesthesia without complication. The patient was prepped and draped in a normal sterile fashion. A bivalve speculum was placed in the patient's vagina single- tooth tenaculums placed on the anterior lip of the cervix. The cervical os was dilated with graduated dilators. A uterine sound was inserted. The hysteroscope was then placed. Insufflation of the uterine cavity was performed with normal saline. Gen. survey of the uterine cavity revealed normal endometrial lining with possible small uterine perforation. The hysteroscope was then removed. A sharp curettage of the endometrial cavity was performed. The remainder of the vaginal instruments were then removed atraumatically. The patient was then successfully extubated taken to the recovery room. All sponge laps and needle counts were correct 2.
[2020-11-29 12:16] VITALS: BP 125/64
--- NOTE | 2020-11-29 13:01 | Post Anesthesia Evaluation ---
- Post Anesthesia Evaluation Patient Participated: Yes Airway Patent: Yes Stable Respiratory Function: Yes Nausea/Vomiting: No Temp > 96.8F: Yes Pain Manageable: Yes Adequeate Hydration: Yes Anesthesia Complications: No
== END 2020-11-29 12:55 | disposition home or self-care (01) ==
LOC: OR 08:55
PROVIDERS: ATTEND Obstetrics & Gynecology
DX: N95.0 Postmenopausal bleeding (principal); N88.2 Stricture and stenosis of cervix uteri; Z20.822 Contact with and (suspected) exposure to COVID-19; K21.9 Gastro-esophageal reflux disease without esophagitis; J45.909 Unspecified asthma, uncomplicated; F32.9 Major depressive disorder, single episode, unspecified; E78.5 Hyperlipidemia, unspecified; G43.909 Migraine, unspecified, not intractable, without status migrainosus; M19.90 Unspecified osteoarthritis, unspecified site; E66.9 Obesity, unspecified; Z79.899 Other long term (current) drug therapy; Z98.51 Tubal ligation status; Z96.659 Presence of unspecified artificial knee joint; Z98.890 Other specified postprocedural states
CPT/HCPCS: 36415; 58558; 80048; 82962; 85027; 88305; A4217; J2250; J2704; J3490; J7120; U0003

== ENCOUNTER 2021-11-27 14:01 | Emergency (ER) | payer OTHER ==
[2021-11-27 15:32] LABS: Basophils % (Auto) 0.1 % (0.0-1.8); Hematocrit 41.1 % (30.3-42.9); Hemoglobin 12.9 gm/dl (10.1-14.3); Lymphocytes # (Auto) 1.4 K/mm3 (1.2-5.4); Lymphocytes % (Auto) 8.7 % (13.4-35.0); Mean Corpuscular HGB Conc 31 % (30-34); Mean Corpuscular Volume 71 fl (79-97); Monocytes # (Auto) 0.5 K/mm3 (0.0-0.8); Monocytes % (Auto) 2.9 % (0.0-7.3); Platelet Count 281 K/mm3 (140-440); Red Cell Distribution Width 15.6 % (13.2-15.2)
[2021-11-27 16:01] LABS: Alanine Aminotransferase 8 units/L (7-56); Albumin 4.5 g/dL (3.9-5)
[2021-11-27 16:08] LABS: Bilirubin,Direct < 0.2 mg/dL (0-0.2)
== END 2021-11-27 19:04 | disposition left against medical advice (07) ==
LOC: ED 14:01
DX: R10.9 Unspecified abdominal pain (principal); Z53.21 Procedure and treatment not carried out due to patient leaving prior to being seen by health care provider
CPT/HCPCS: 36415; 80076; 83690; 85025